=== PATIENT | female | born 1940 | race Caucasian/White ===

== ENCOUNTER 2018-01-24 18:20 | Inpatient (IN) | payer MEDICARE, BC ==
[~2018-01-24] VITALS: Ht 149.9 cm; Wt 89.4 kg
[2018-01-24] MEDS ORDERED: BECL10.62 (19:37)
[2018-01-24] MEDS ORDERED: GABA-532 (19:37)
[2018-01-24] MEDS ORDERED: ALBU8.5H8 (19:37)
[2018-01-24] MEDS ORDERED: VALS160T28 (19:37)
[2018-01-24] MEDS ORDERED: QVAR (19:37)
[2018-01-24] MEDS ORDERED: AZIL80TA (19:37)
[2018-01-24] MEDS ORDERED: DULO20CA18 (19:37)
[2018-01-24] MEDS ORDERED: LORA2TAB (19:37)
[2018-01-24] MEDS ORDERED: ROSU20TA PO (19:38)
[2018-01-24] MEDS ORDERED: ASPI-605 PO (19:39)
[2018-01-24] MEDS ORDERED: FLUT16SP16 NS (19:41)
[2018-01-24] MEDS ORDERED: PRAV20TA4 PO (19:43)
[2018-01-24] MEDS ORDERED: MAGNESIUM HYDROXIDE 30 ML UDC PO PRN (20:00)
[2018-01-24 20:16] VITALS: BP 135/70
[2018-01-24 20:23] VITALS: BP 151/73
--- NOTE | 2018-01-24 20:33 | NUR ---
ADMISSION NOTES ADMITTED THIS 77 Y/O FEMALE PATIENT ADMIT FROM [facility]/ , PT. INTIALLY CAME FROM HOME. PT IS ON 5150 HOLD FOR GD ,DTS , PER HOLD PT. IS DEPRESSED, SUCIDIAL IDEATION PER HOLD STATEMENT SHE WANTED TO BLOW HER BRAIN OUT , UPON FACE TO FACE ASSESSMENT PATIENT IS A&O X3 DEPRESSED COOPERTIVE ,DENIES SI/HI AT THIS TIME , V/S WNL, NO ACUTE DISTRESS NOTED, HX OF MAJOR DEPRESSION , HTN, ASTHMA, BACK PAIN, ADENOCARCINOMA, MD TRESSA AWARE AND NOTIFIED OF THE ADMISSION, SKIN ASSESSMENT DONE . PICTURE TAKEN AND PLACED IN THE CHART, ENCOURAGED PT. VERBALIZED ANY FEELING CONCERN TO STAFF, ORIENT TO UNIT POLICY, WILL CONTINUE TO MONITOR FOR Q15 SAFETY AND BEHAVIOR.
[2018-01-25] MEDS ORDERED: ALBUTEROL FS 2.5 MG/3 ML VIAL.NEB NEB PRN
[2018-01-25] MEDS: TEMAZEPAM 7.5 MG CAPSULE PO PRN ×2 (01:18→21:48)
[2018-01-25] MEDS: LORAZEPAM 0.5 MG TABLET PO PRN ×2 (06:02→20:05)
[2018-01-25 06:53] LABS: BASOPHILS # (AUTO) 0.1 /CMM (0.0-0.2); BASOPHILS % (AUTO) 0.6 % (0.0-2.0); EOSINOPHILS % (AUTO) 2.1 % (0.0-6.0); HEMATOCRIT 37 % (33-45); HEMOGLOBIN 12.6 g/dL (11.5-14.8); LYMPHOCYTES # (AUTO) 2.2 /CMM (0.8-4.8); MEAN CORPUSCULAR HEMOGLOBIN 31 PG (26.0-33.0); MEAN CORPUSCULAR HGB CONC 35 g/dl (31.0-36.0); MEAN CORPUSCULAR VOLUME 89 fL (82-100); MONOCYTES # (AUTO) 0.5 /CMM (0.1-1.30); MONOCYTES % (AUTO) 4.9 % (2.0-12.0); NEUTROPHILS # (AUTO) 6.5 /CMM (1.8-8.9); NEUTROPHILS % (AUTO) 69.4 % (43.0-81.0); PLATELET COUNT (AUTO) 284 /CMM (150-450); RDW COEFFICIENT OF VARIATION 13.2 (11.5-15.0); RED BLOOD CELL COUNT(AUTO) 4.09 MIL/uL (4.0-5.2); WHITE BLOOD COUNT (AUTO) 9.5 K/uL (4.3-11.0)
[2018-01-25 06:57] LABS: ALANINE AMINOTRANSFERASE 27 U/L (12-78); ALBUMIN 3.5 g/dL (3.4-5.0); ALKALINE PHOSPHATASE 104 U/L (46-116); ASPARTATE AMINOTRANSFERASE 20 U/L (15-37); BILIRUBIN,TOTAL 0.2 mg/dL (0.2-1.0); CARBON DIOXIDE 22 mmol/L (21-32); CHLORIDE 102 mmol/L (98-107); CHOLESTEROL 191 mg/dL (<200); CREATININE 1.1 mg/dL (0.6-1.3); GLUCOSE 181 mg/dL (74-106); HDL CHOLESTEROL 69 mg/dL (40-60); LDL 100 mg/dL (0-99); POTASSIUM 3.8 mmol/L (3.5-5.1); SODIUM SERUM 138 mmol/L (136-145); TOTAL PROTEIN, SERUM 7.3 g/dL (6.4-8.2); TRIGLYCERIDES 227 mg/dL (30-150); UREA NITROGEN, BLOOD 22 mg/dL (7-18)
[2018-01-25 08:00] VITALS: BP 137/74
[2018-01-25] MEDS: ACETAMINOPHEN 325 MG TABLET PO PRN (09:57)
[2018-01-25] MEDS: GABAPENTIN 100 MG CAPSULE PO SCH ×2 (13:48→16:50)
[2018-01-25 16:00] VITALS: BP 145/65
[2018-01-25] MEDS: FLUTICASONE PROPIONATE 16 GM BOTTLE NS SCH (16:50)
[2018-01-25] MEDS ORDERED: [UNRECOGNIZED DRUG - OTHER] NS SCH (17:00)
--- NOTE | 2018-01-25 19:30 | NUR ---
GPS RN NOTE, RECEIVED PATIENT AWAKE AND IN BED, PATIENT HAS NO S/S OR COMPLAINTS OF PAIN. PATIENT IS DISPLAYING NO S/S OF APPARENT DISTRESS AT THIS TIME. PATIENT BREATHING IS UNLABORED WITH EQUAL RISE AND FALL OF THE CHEST. PATIENT IS ALERT AND ORIENTED X 3 ON ROOM AIR WITH A SPO2 97%. PATIENT IS MEDICATION COMPLIANT, DISORGANIZED, ANXIOUS AT TIMES, AND NEEDS CONSTANT REORIENTATION. PATIENT DENIES SUICIDE IDEATIONS AND HOMICIDAL IDEATIONS AT THIS TIME. PATIENT ASSISTED WITH TURNING AND REPOSITIONING Q2 HR AND PRN FOR COMFORT AND CIRCULATION. PATIENT HAS NO NEEDS AT THIS TIME. PATIENT EDUCATED ON THE USE OF THE CALL SINHA. PATIENT BED SIDE RAILS UP X 2 FOR SAFETY, BED LOCKED AND LOW WILL CONTINUE TO MONITOR AND MAINTAIN SAFETY Q15 MIN WITH THE HELP OF STAFF.
--- NOTE | 2018-01-25 20:05 | NUR ---
GPS RN NOTE, PATIENT HAS A COMPLAINT OF FEELING ANXIOUS AND IS REQUESTING ATIVAN AT THIS TIME. PATIENT VITAL SIGNS ARE STABLE. GAVE ATIVAN 0.5MG PO Q6HR PRN ORDERED. WILL REASSESS FOR ANXIETY AND I WILL CONTINUE TO MONITOR THIS PATIENT.
[2018-01-25 21:15] VITALS: BP 144/76
[2018-01-25] MEDS: DULOXETINE HCL 30 MG CAPSULE.DR PO SCH (21:47)
--- NOTE | 2018-01-25 21:47 | NUR ---
GPS RN NOTE, PATIENT REFUSED TO TAKE CYMBALTA 60MG PO HS. OFFERED CYMBALTA THREE TIMES AND STILL PATIENT REFUSED STATING, " I DON'T TAKE THAT AT NIGHT IT GETS ME ALL WIRED UP ". EDUCATED THIS PATIENT ON THE RISKS AND BENEFITS OF TAKING AND REFUSING AFOREMENTIONED MEDICATION. WILL CONTINUE TO MONITOR THIS PATIENT.
[2018-01-25] MEDS: ATORVASTATIN 10 MG TABLET PO SCH (21:48)
--- NOTE | 2018-01-25 21:48 | NUR ---
GPS RN NOTE, PATIENT HAS A COMPLIANT OF NOT BEING ABLE TO SLEEP AND IS REQUESTING RESTORIL AT THIS TIME. PATIENT VITAL SIGNS ARE STABLE. GAVE RESTORIL 7.5MG PO HS ORDERED. WILL REASSESS FOR INSOMNIA AND I WILL CONTINUE TO MONITOR THIS PATIENT.
[2018-01-26] MEDS: ALBUTEROL FS 2.5 MG/3 ML VIAL.NEB NEB PRN (02:24)
[2018-01-26] MEDS: ACETAMINOPHEN 325 MG TABLET PO PRN (02:48)
[2018-01-26] MEDS: LORAZEPAM 0.5 MG TABLET PO PRN (02:48)
[2018-01-26] MEDS ORDERED: hydrALAZINE HCL 25 MG TABLET PO PRN (04:00)
[2018-01-26] MEDS: LORAZEPAM 1 MG TABLET PO PRN ×4 (04:02→23:55)
--- NOTE | 2018-01-26 04:02 | NUR ---
GPS RN NOTE, PATIENT HAS A COMPLAINT OF FEELING ANXIOUS AND IS REQUESTING ATIVAN AT THIS TIME. PATIENT VITAL SIGNS ARE STABLE. GAVE ATIVAN 1MG PO Q6HR PRN ORDERED. WILL REASSESS FOR ANXIETY AND I WILL CONTINUE TO MONITOR THIS PATIENT.
[2018-01-26 08:00] VITALS: BP 165/73
[2018-01-26] MEDS ORDERED: PRAVASTATIN SODIUM 20 MG TABLET PO SCH (09:00)
[2018-01-26] MEDS: FLUTICASONE PROPIONATE 16 GM BOTTLE NS SCH ×2 (09:14→17:13)
[2018-01-26] MEDS: GABAPENTIN 100 MG CAPSULE PO SCH ×3 (09:15→17:13)
[2018-01-26] MEDS: ASPIRIN EC 81 MG TABLET.DR PO SCH (09:15)
[2018-01-26] MEDS: VALSARTAN 80 MG TABLET PO SCH (09:15)
--- NOTE | 2018-01-26 13:13 | NUR ---
Initial Discharge Plan: Pt currently resides at [address] [place] [address];([phone]) with her . Per pt, she would like to return there. SW will work with the pt and the MD regarding appropriate discharge plans. SW will form a safe and proper discharge.
--- NOTE | 2018-01-26 13:50 | NUR ---
SW contacted the pt's daughter, Gisselle Osei ([phone]), and discussed the initial discharge plan.
[2018-01-26 16:00] VITALS: BP 133/70
[2018-01-26] MEDS: BUDESONIDE RESPULE INH 0.5 MG/2 ML AMPUL.NEB NEB SCH (19:30)
[2018-01-26 20:24] VITALS: BP 144/95
[2018-01-26] MEDS: DULOXETINE HCL 30 MG CAPSULE.DR PO SCH (21:14)
[2018-01-26] MEDS: ATORVASTATIN 10 MG TABLET PO SCH (21:14)
--- NOTE | 2018-01-26 23:58 | NUR ---
GPS RN NOTE: PATIENT REQUEST FOR ANXIETY MEDICATION, ATIVAN 1MG 1 TAB ORAL GIVEN PER MD ORDER. WILL CONTINUE TO MONITOR.
[2018-01-27] MEDS: ALBUTEROL FS 2.5 MG/3 ML VIAL.NEB NEB PRN (05:23)
[2018-01-27 08:00] VITALS: BP 130/54
[2018-01-27] MEDS: GABAPENTIN 100 MG CAPSULE PO SCH ×3 (08:29→17:29)
[2018-01-27] MEDS: VALSARTAN 80 MG TABLET PO SCH (08:30)
[2018-01-27] MEDS: ASPIRIN EC 81 MG TABLET.DR PO SCH (08:30)
[2018-01-27] MEDS: FLUTICASONE PROPIONATE 16 GM BOTTLE NS SCH ×2 (08:31→17:30)
[2018-01-27] MEDS: BUDESONIDE RESPULE INH 0.5 MG/2 ML AMPUL.NEB NEB SCH ×2 (08:39→19:52)
[2018-01-27] MEDS: LORAZEPAM 1 MG TABLET PO PRN (15:20)
--- NOTE | 2018-01-27 15:21 | NUR ---
RN NOTE :PATIENT MEDICATED WITH ATIVAN 1MG X1 FOR AGITATION AND ANXIETY .WILL CONTINUE TO MONITOR .
[2018-01-27 17:10] VITALS: BP 156/77
[2018-01-27] MEDS ORDERED: BUDESONIDE RESPULE INH 0.25 MG/2 ML AMPUL.NEB ONE (19:47)
[2018-01-27 20:50] VITALS: BP 153/62
[2018-01-27] MEDS: DULOXETINE HCL 30 MG CAPSULE.DR PO SCH (22:11)
[2018-01-27] MEDS: ATORVASTATIN 10 MG TABLET PO SCH (22:11)
[2018-01-28] MEDS: ACETAMINOPHEN 325 MG TABLET PO PRN (03:30)
[2018-01-28] MEDS: MAG HYDROX/AL HYDROX/SIMETH 30 ML UDC PO PRN ×2 (04:50→18:32)
[2018-01-28] MEDS: BUDESONIDE RESPULE INH 0.5 MG/2 ML AMPUL.NEB NEB SCH (07:59)
[2018-01-28 08:00] VITALS: BP 143/75
[2018-01-28] MEDS: ASPIRIN EC 81 MG TABLET.DR PO SCH (08:06)
[2018-01-28] MEDS: FLUTICASONE PROPIONATE 16 GM BOTTLE NS SCH ×2 (08:07→16:33)
[2018-01-28] MEDS: VALSARTAN 80 MG TABLET PO SCH (08:07)
[2018-01-28] MEDS: GABAPENTIN 100 MG CAPSULE PO SCH ×3 (08:07→16:32)
[2018-01-28] MEDS: LORAZEPAM 1 MG TABLET PO PRN (13:58)
--- NOTE | 2018-01-28 13:58 | NUR ---
Pt. is anxious, irritable and worried. Ativan po prn given and will continue to monitor.
--- NOTE | 2018-01-28 14:24 | NUR ---
RA spoke to the pt's , Leandro Bullock ([phone]), and discussed his 's discharge plan. He stated that the pt has a doctor's appointment tomorrow and so the SW will follow up and see if the appointment could be rescheduled.
--- NOTE | 2018-01-28 14:51 | NUR ---
RA called the pt's hematology and oncology doctor's office (Javi Cordoba's office) [phone]) and spoke to Cheryl to reschedule her appointment that was set for tomorrow. The pt's appointment has been rescheduled for February 22 at 2:30pm.
[2018-01-28 16:00] VITALS: BP 134/67
--- NOTE | 2018-01-28 18:58 | NUR ---
DR. TALBERT GAVE AN ORDER TO D/C HOLD AND D/C HOME AND TO FOLLOW UP WITH PSYCH AND MEDICAL DOCTORS. PT. WITHOUT DISTRESS, DENIES SUICIDAL AND HOMICIDAL. BELONGINGS READY.
--- NOTE | 2018-01-28 19:05 | NUR ---
DR. TRAYLOR NOTIFIED ABOUT THE DISCHARGE AND SAID OK FOR DISCHARGE. PER PT. SHE DOESN'T PRESCRIPTIONS, SHE STILL HAVE MEDS AT HOME. Addendum: 01/28/18 at 1930 by RAFA POWERS RN SHE DOESN'T NEED MEDICAL PRESCRIPTIONS, SHE STILL HAVE MEDS AT HOME.
--- NOTE | 2018-01-28 19:09 | NUR ---
RN-CO: Patient is calm and cooperative to care. Seen and examined by Dr King ( covering for Dr Palacios) with orders to discontinue hold and discharge patient today, noted and carried out. Patient denied Suicidal and homicidal ideation. Denied auditory and visual hallucinations. Per patient and , patient has a lot of medications at home to take , hence she does not need prescription from medical doctor.All discharge papers and exit care was explained to patient and , they verbalized understanding. Patients belongings was all given back to them. Dr Payne was notified and medically cleared patient for discharge. Patient will be escorted to hospital lobby and go home via private car.
--- NOTE | 2018-01-28 19:25 | NUR ---
Pt. left the unit with belongings and was picked up with the . Left without distress, ambulatory and on stable condition. V/S taken: BP 135/70, DC 86, RR 18, temp 98.2, RR 18 and oxygen sat 94%
--- NOTE | 2018-01-29 11:11 | NUR ---
Discharge Note: Pt was discharged home to [address] [place] [address] in the evening. She was taken home by her , Leandro Bullock ([phone]) who spoke to the psychiatrist and assured him that his would be fine at home and that she has an important doctors appointment that she does not want to miss tomorrow. Upon discharge, pt denied having any hallucinations and denied both suicidal and homicidal ideation. Pt will be under the care of pharmacy analyst, Dr. Javi Cordoba, located at [address] [facility] [address], [place] [address] ([phone]) and her psychiatrist, Dr. Nathan Oconnell, located at [address] [facility] [address], [place] [address] ([phone]).
== END 2018-01-28 19:25 | disposition home or self-care (01) | DRG 885 ==
LOC: GPS 18:21
PROVIDERS: ADMIT Internal Medicine; ATTEND Psychiatry & Neurology Psychosomatic Medicine
DX: F32.2 Major depressive disorder, single episode, severe without psychotic features (principal); F23 Brief psychotic disorder; R45.851 Suicidal ideations; C34.90 Malignant neoplasm of unspecified part of unspecified bronchus or lung; F41.9 Anxiety disorder, unspecified; I10 Essential (primary) hypertension; E78.5 Hyperlipidemia, unspecified; J45.909 Unspecified asthma, uncomplicated; G62.9 Polyneuropathy, unspecified; F03.90 Unspecified dementia, unspecified severity, without behavioral disturbance, psychotic disturbance, mood disturbance, and anxiety; F25.9 Schizoaffective disorder, unspecified
CPT/HCPCS: 36415; 80053-TC; 80061-TC; 85025-TC; 87081-TC; 94799-TC; Z7610